=== PATIENT | male | born 1985 | race Caucasian/White ===

== ENCOUNTER → 2020-03-27 11:05 | Outpatient (BNVA) | payer BC, SELFPAY | PROVIDERS: Family Provider Family Medicine; Visit Provider Nurse Practitioner | DX: M25.579 Pain in unspecified ankle and joints of unspecified foot (principal); M65.271 Calcific tendinitis, right ankle and foot; M25.571 Pain in right ankle and joints of right foot | CPT/HCPCS: 84550 ==

== ENCOUNTER 2021-02-06 09:09 | Outpatient (CLI) | payer BC, SELFPAY ==
[2021-02-06 09:31] VITALS: BMI 43.2
--- NOTE | 2021-02-06 09:31 | ECG_ITS ---
[facility] Test Date: 2021-02-06 Pat Name: Alejandro Almazan Department: Room: Gender: Male Information Assurance Analyst: : 1985 Requested By: Mirlande Munguia Order Number: [id number] Heidy MD: Alissa Patino M.D. Interpretive Statements NAME OF STUDY: LEXISCAN SESTAMIBI STRESS TEST INDICATION: Chest Pain PROCEDURE: At the baseline, the EKG revealed normal sinus rhythm with normal ST-T's. The baseline blood pressure was 145/82 mm Hg with a heart rate of 69 beats/min. Lexiscan was infused over a period of 20 seconds. A total of 0.4 milligrams of Lexiscan was infused. The stress phase was continued for a total of 5 minutes. Heart rate at the end of the stress phase was 95 with a blood pressure 125/71. The EKG at the peak infusion revealed no significant changes. Sestamibi was injected 20 seconds after the Lexiscan infusion. Blood pressure at the end of the recovery phase was 124/69 with a heart rate of 88 per minute. CONCLUSION: 1. No significant EKG changes with the LexiScan infusion 2. No LexiScan induced chest pain or cardiac arrhythmia 3. Normal blood pressure and heart rate response 4. Sestamibi/sestamibi perfusion scan pending; see separate report. Electronically Signed On 02-16-2021 8:49:09 CDT by Alissa Patino M.D. [id number]
--- NOTE | 2021-02-06 09:32 | NMCV_ITS ---
NM rosie perf SPECT r/s* [id number] Alejandro Almazan Age: 35 Gender: M : 1985 Exam Date: 02/06/2021 10:21 Ordering Phys: Mirlande MunguiaP INTAKE NURSE Technologist: LAUREN Lisa Exam Location: [facility] Indications: INTERMITTENT LEFT SIDED CHEST PAIN STRESS TEST Please see separate stress test report in [facility] for full findings IMAGE PROTOCOL Rest/Stress 1 Lexiscan Day Radiopharmaceutical Dose (mCi) Administration Site Administered by Rest: Tc-99m 10.9 IV LAUREN Lisa Sestamibi Stress:Tc-99m 32.9 IV LAUREN Cuevas Sestamibi Rest: 06-Feb-2021 60 Discovery 630 Stress: 06-Feb-2021 30 Discovery 630 0.4mg Lexiscan. Images obtained in supine and prone position. SPECT RESULTS Technical Quality: Excellent Raw Data Analysis: Normal Image Corrections: No attenuation or motion correction applied Summed Stress Score: 0 Summed Rest Score: 0 Summed Difference Score: 0 PERFUSION FINDINGS Fairly uniform myocardial tracer uptake. No significant perfusion abnormalities were noted. FUNCTIONAL RESULTS (calculated via Gated SPECT) Stress Image LV EF (%): 70 Stress EDV (mL):122 TID: 1.06 Stress ESV (mL):36 FUNCTIONAL FINDINGS: Segmental wall motion analysis revealing no gross wall motion abnormalities IMPRESSIONS 1. Unremarkable myocardial perfusion imaging. 2. LV wall motion analysis revealing no gross wall pressure abnormalities. 3. LV ejection fraction estimated to be 70%. 4. Normal LV volume. No significant coronary ischemia, based on the above findings Dr Alissa Patino MD [facility] (Electronically Signed) Final Date: 06 February 2021 16:44 S
[2021-02-06 11:01] VITALS: BP 132/72; PULSE 93
[2021-02-06] MEDS: regadenoson 0.4 Mg/5 ml Syringe IVP (11:01)
== END 2021-02-06 09:10 | disposition home or self-care (01) ==
PROVIDERS: PCP Nurse Practitioner Family; Visit Provider Nurse Practitioner Family
DX: R07.89 Other chest pain (principal)
CPT/HCPCS: 78452; 93017; A9500; J2785

== ENCOUNTER → 2021-05-13 10:03 | Outpatient (BNVA) | payer BC, SELFPAY | PROVIDERS: PCP Nurse Practitioner Family; Visit Provider Nurse Practitioner Family | DX: J02.9 Acute pharyngitis, unspecified (principal); Z68.31 Body mass index [BMI] 31.0-31.9, adult; F17.211 Nicotine dependence, cigarettes, in remission; Z71.89 Other specified counseling | CPT/HCPCS: 87880 ==

== ENCOUNTER 2022-01-10 07:30 | Emergency (ER) | payer BC, SELFPAY ==
[2022-01-10 07:39] VITALS: BP 152/99; PULSE 88; RESP 18; TEMP 37.1; O2SAT 96; BMI 32.8
--- NOTE | 2022-01-10 07:41 | XR_ITS ---
WS: [id number] CERVICAL SPINE 3 VIEWS HISTORY: neck pain for 10 days, felt pop in neck today COMPARISON: None available. Normal cervical alignment with no fracture or destructive process. Disc spaces and vertebral body heights are well-maintained. Very mild asymmetry of the lateral masses of C1 and C2 is probably rotational. No prevertebral soft tissue edema. Soft tissues are normal. XR/XR cervical spine 3V* [id number] IMPRESSION: 1. No cervical spine fracture. 2. Very minimal asymmetry of the lateral masses of C1 and C2. This is probably rotational. No prevertebral soft tissue swelling. 3. If there is continued concern for fracture consider follow-up CT evaluation .
--- NOTE | 2022-01-10 07:42 | ED_ITS ---
HPI - Neck Pain/Injury General: Chief Complaint: Neck Pain/Injury Stated Complaint: Stiff neck for about 10 days Time Seen by Provider: 01/10/22 07:41 History of Present Illness: Patient is a 36-year-old male who comes to the ED with neck pain. Symptoms started approximately 10 days ago. He woke up 10 days ago with some neck pain and it has continued and not gotten any better. Today he woke up and when he moved he felt a pop in his neck. Most of his neck pain is on the right side of his neck. Says it hurts whenever he does any rotating of his head. Denies any other symptoms with neck pain, such as fever, chills, nausea/vomiting, pain/weakness/numbness to upper extremities. Patient works for [employer] and travels quite a bit and is currently traveling and away from home and is regular bed and pillow. Patient was sleeping in a hotel bed when symptoms started. Associated symptoms: Denies headache(s) or nausea Review of Systems Const: Denies: fever(s), chills or fatigue Eyes: Denies: change in vision or eye discomfort ENMT: Denies: throat pain, odynophagia, nasal discharge or nasal congestion Card: Denies: chest pain, palpitations, edema, swelling of feet/ankles, dyspnea on exertion or orthopnea Resp: Denies: dyspnea, productive cough or non-productive cough GI: Denies: abdominal pain, nausea, vomiting, diarrhea, constipation or hematochezia : Denies: flank pain, difficulty urinating, dysuria or hematuria Musc: Reports: neck pain; Denies: back pain or extremity swelling Skin/Breast: Denies: rash or new lesions Neuro: Denies: headache(s), numbness in extremities or weakness in extremities PFS ED PFSH: Medical History No pertinent family history Surgical History No pertinent past surgical history Social History Smoking and tobacco status: former smoker Second hand smoke exposure: No Alcohol intake: never Desire information about alcohol rehabilitation?: No Desire information about substance/drug rehabilitation?: No Physical Exam Const: COMMON NORMALS: no acute distress, patient oriented x3, healthy appearing and alert GENERAL APPEARANCE: cooperative and comfortable HENMT: COMMON NORMALS: normocephalic HEAD & SCALP: normocephalic MOUTH: Normal oral and palatal mucosa present THROAT: posterior oropharynx normal and uvula midline Neck/C-Spine: COMMON NORMALS: supple and no meningeal signs GENERAL: Yes normal visual inspection CERVICAL SPINE: Yes cervical ROM normal, Yes pain with cervical ROM with rotation to the right and with rotation to the left, No Cervical spine tenderness, Yes Paracervical muscle tenderness right and Yes Trapezius muscle tenderness right Resp: COMMON NORMALS: normal respiratory effort, No retractions, No use of accessory muscles and clear to auscultation bilaterally AUSCULTATION: clear to auscultation bilaterally Cardio: COMMON NORMALS: regular rate, regular rhythm, S1 normal heart sound present, S2 normal heart sound present, No gallops present (Cardio), No clicks present (Cardio), No murmurs present (Cardio) and Peripheral pulses 2+ throughout RATE: regular rate RHYTHM: regular rhythm HEART SOUNDS: S1 normal heart sound present and S2 normal heart sound present PERIPHERAL PULSES: Peripheral pulses 2+ throughout GI: COMMON NORMALS: Normal to inspection, nondistended, normoactive bowel sounds present, Soft to palpation, non-tender and no masses PALPATION: Yes Soft to palpation : COMMON NORMALS: Yes no CVA tenderness BLADDER/KIDNEY EXAM: Yes no CVA tenderness Back/Pelvis: COMMON NORMALS: no CVA tenderness Extremity: COMMON NORMALS: normal to inspection Neuro: COMMON NORMALS: patient oriented x3 and moves all extremities SENSORIUM/ORIENTATION: Yes alert MENINGEAL SIGNS: Yes no meningeal signs Skin: GENERAL SKIN EXAM: dry skin Course Vital Signs: Vital signs: Vital Signs Temperature 98.7 F 01/10/22 07:39 Pulse Rate 76 01/10/22 08:07 Respiratory Rate 16 01/10/22 08:07 Blood Pressure 133/79 01/10/22 08:07 Pulse Oximetry 97 01/10/22 08:07 MDM - Neck Pain/Injury Medical Decision Making Patient is a 36-year-old male comes to the ED with neck pain. Denies any other symptoms with neck pain, such as fever, chills, nausea/vomiting, pain/ weakness/numbness to upper extremities. Vitals are stable. Patient appears nontoxic and in no acute distress or pain. He sitting comfortably on exam chair when I enter the room. Patient has some right sided paracervical muscle tenderness and right trapezius muscle tenderness. No meningeal signs. X-ray of cervical spine showed no fractures. Patient diagnosed with cervical muscle pain and discharged home with a prescription for Celebrex and cyclobenzaprine. Patient told to follow-up with PCP in 7 to 10 days for reevaluation. Return to ED precautions given. Patient understood and agree with plan. Lab Data Radiology Impressions Cervical Spine X-Ray 01/10/22 07:41 IMPRESSION: 1. No cervical spine fracture. 2. Very minimal asymmetry of the lateral masses of C1 and C2. This is probably rotational. No prevertebral soft tissue swelling. 3. If there is continued concern for fracture consider follow-up CT evaluation. Discharge Plan Discharge Patient Disposition: Home Clinical Impression: Muscle pain, cervical Condition: Stable Prescriptions: New celecoxib 100 mg capsule 100 mg PO BID PRN (Reason: pain) Qty: 30 0RF cyclobenzaprine 7.5 mg tablet 7.5 mg PO BID PRN (Reason: muscle spasm and muscle pain) Qty: 20 0RF No Action amoxicillin-pot clavulanate [Augmentin] 875-125 mg tablet 1 tab PO BID 10 Days Qty: 20 0RF Discharge Orders: Discharge ED (Routine); Ordered 01/10/22 Ordered By: Guilherme Ward Referrals: Mirlande Munguia FNP [Primary Care Provider] - Discharge Diet: Regular Discharge Activity: Increase activity as tolerated Patient Instructions: Neck Pain (ED) Activity Restrictions/Additional Instructions: Follow-up with medical provider as directed in 7 to 10 days for reevaluation. Apply cold pack or heat on sore neck to help with symptoms. Do neck stretches daily. Cyclobenzaprine is a muscle relaxer and can cause some drowsiness so take at night before going to bed. Take medications as prescribed. Return to the ER or your medical provider if condition worsens. Please read and understand discharge instructions. Thank you for choosing [facility] for your healthcare needs today. Please realize this is an emergency room and that we are providing you with a medical screening exam and this may not be complete and all inclusive of all the testing and or work up that you may need to determine your ailment or severity of your illness. It is very important that you follow up as instructed or that you return to the Emergency Department should you have concerns or if your condition changes or worsens in any way. Coding Level of Care Code ED Ammonia Operator for Alicia Alfaro Exam Comprehensive
[2022-01-10 08:07] VITALS: BP 133/79; PULSE 76; RESP 16; O2SAT 97
[2022-01-10] MEDS: orphenadrine 30 mg/mL Inj 2 mL 60 MG IM (08:16)
[2022-01-10] MEDS: ketorolac 60 mg/2 mL INJ IM (08:17)
== END 2022-01-10 08:43 | disposition home or self-care (01) ==
PROVIDERS: Emergency Provider Physician Assistant; PCP Nurse Practitioner Family
DX: M79.18 Myalgia, other site (principal); Z87.891 Personal history of nicotine dependence
CPT/HCPCS: 72040; 96372; 99283; J1885; J2360

== ENCOUNTER 2022-01-11 06:35 | Emergency (ER) | payer BC, SELFPAY ==
[2022-01-11 06:42] VITALS: BP 158/112; PULSE 90; RESP 18; TEMP 37; O2SAT 96; BMI 32.8
--- NOTE | 2022-01-11 06:42 | W.ED.NECK ---
HPI - Neck Pain/Injury General: Chief Complaint: Neck Pain/Injury Stated Complaint: 11 days with stiff neck Time Seen by Provider: 01/11/22 06:39 Source: patient Mode of arrival: ambulatory Limitations: no limitations History of Present Illness: 36-year-old male presents emergency room planing of neck pain is began 11 days ago he was seen yesterday he was given Celebrex and cycle Benzapril he is not really had any significant improvement. No specific trauma no pain radiation weakness rating into the arms. MD complaint: neck pain Onset (ago): day(s) (11) Severity: moderate Quality: sharp Duration: constant Relieving factors: none Exacerbating factors: none Associated symptoms: Denies dysphagia, difficulty walking, dizziness, fevers/chills, headache(s), nausea, swollen glands, tingling or weakness Treatments prior to arrival: prescription analgesic, cold therapy, heat therapy and other (Muscle relaxers) Review of Systems Const: Denies: fever(s), chills, body aches, change in appetite, fatigue or malaise Card: Denies: chest pain, edema, dyspnea on exertion or orthopnea Resp: Denies: dyspnea, productive cough or non-productive cough GI: Denies: nausea or dysphagia : Denies: flank pain, dysuria, urinary frequency or urinary urgency Skin/Breast: Denies: rash or pruritus Neuro: Denies: headache(s), difficulty walking or dizziness PFSH ED PFSH: Medical History No pertinent family history Surgical History No pertinent past surgical history Social History Smoking and tobacco status: former smoker Second hand smoke exposure: No Alcohol intake: never Desire information about alcohol rehabilitation?: No Desire information about substance/drug rehabilitation?: No Physical Exam Const: COMMON NORMALS: no acute distress GENERAL APPEARANCE: cooperative and comfortable ORIENTATION/CONSCIOUSNESS: Yes awake, Yes oriented to person, Yes oriented to place and Yes oriented to time HENMT: COMMON NORMALS: normocephalic, atraumatic and hearing grossly normal bilaterally HEAD & SCALP: normocephalic and atraumatic Neck/C-Spine: COMMON NORMALS: no lymphadenopathy, supple and no JVD OTHER: Limited range of motion due to pain however patient can side bend rotate flex and extend independently with minimal discomfort Lymph: LYMPHATIC: no lymphadenopathy noted and no lymphedema noted Resp: COMMON NORMALS: normal respiratory effort, No retractions, No use of accessory muscles and clear to auscultation bilaterally AUSCULTATION: clear to auscultation bilaterally Cardio: COMMON NORMALS: no JVD, regular rate, regular rhythm and No murmurs present (Cardio) RATE: regular rate RHYTHM: regular rhythm Extremity: COMMON NORMALS: normal to inspection, capillary refill normal, no clubbing, cyanosis or edema, no calf tenderness and no pedal edema Neuro: SENSORIUM/ORIENTATION: Yes oriented to person, Yes oriented to place and Yes oriented to time Skin: COMMON NORMALS: no rashes or lesions noted GENERAL SKIN EXAM: no rashes or lesions noted Course Vital Signs: Vital signs: Vital Signs Temperature 98.6 F 01/11/22 06:42 Pulse Rate 90 01/11/22 06:42 Respiratory Rate 12 01/11/22 07:04 Blood Pressure 158/112 01/11/22 06:42 Pulse Oximetry 96 01/11/22 07:04 MDM - Neck Pain/Injury Medical Decision Making Musculoskeletal neck pain. Will give prednisone taper different NSAID as well as start Lyrica and a different muscle relaxer. Follow-up with primary care if not improving at this point he has no sign of radicular symptoms and I will take advanced imaging would be helpful however that would need to be reevaluated if this persist or change Medical Records I reviewed the patient's medical records. Lab Data I reviewed the patient's lab results. Discharge Plan Discharge Patient Disposition: Home Clinical Impression: Muscle pain, cervical Condition: Stable Prescriptions: New prednisone 20 mg tablet 20 mg PO TID Qty: 15 0RF Rx Instructions: 1 tablet p.o. 3 times daily x3 days, 1 p.o. twice daily x2 days, 1 p.o. daily x2 days tizanidine 4 mg capsule 4 mg PO Q6H PRN (Reason: muscle spasticity) Qty: 30 0RF Rx Instructions: do not exceed 3 doses per 24 hrs diclofenac sodium 75 mg tablet,delayed release (DR/EC) 75 mg PO Q12H PRN (Reason: pain) Qty: 20 0RF Lyrica 75 mg capsule 75 mg PO BID Qty: 20 0RF Discontinued celecoxib 100 mg capsule 100 mg PO BID PRN (Reason: pain) Qty: 30 0RF cyclobenzaprine 7.5 mg tablet 7.5 mg PO BID PRN (Reason: muscle spasm and muscle pain) Qty: 20 0RF No Action amoxicillin-pot clavulanate [Augmentin] 875-125 mg tablet 1 tab PO BID 10 Days Qty: 20 0RF Discharge Orders: Discharge ED (Routine); Ordered 01/11/22 Ordered By: Marciano Gomes Referrals: Mirlande Munguia FNP [Primary Care Provider] - Discharge Diet: Usual diet Discharge Activity: Increase activity as tolerated Patient Instructions: Opioid Safety Activity Restrictions/Additional Instructions: Follow-up with primary care doctor as needed. If not improving recheck with primary care to reevaluate Coding Level of Care Code ED Magazine Supervisor for Alicia Alfaro
[2022-01-11 07:04] VITALS: RESP 12; O2SAT 96
[2022-01-11] MEDS: morphine 4 mg/mL SDV 1 mL IVP (07:04)
[2022-01-11] MEDS: ketorolac 30 mg/mL INJ IVP (07:04)
[2022-01-11] MEDS: dexamethasone 10 mg/mL INJ IVP (07:04)
[2022-01-11] MEDS: orphenadrine 30 mg/mL Inj 2 mL 60 MG IVP (07:05)
[2022-01-11 07:28] VITALS: BP 147/102; O2SAT 98
== END 2022-01-11 07:27 | disposition home or self-care (01) ==
PROVIDERS: Emergency Provider Family Medicine; PCP Nurse Practitioner Family
DX: M79.18 Myalgia, other site (principal); Z87.891 Personal history of nicotine dependence
CPT/HCPCS: 96374; 96375; 99283; J1100; J1885; J2270; J2360

== ENCOUNTER → 2022-06-04 11:07 | Outpatient (BNVA) | payer BC, SELFPAY | PROVIDERS: PCP Nurse Practitioner Family; Visit Provider Family Medicine Adult Medicine | DX: M79.641 Pain in right hand (principal) | CPT/HCPCS: 73120 ==